=== PATIENT | female | born 1990 | race Caucasian/White ===

== ENCOUNTER 2024-07-16 14:34 | Emergency (ER) | payer MEDICAID, BC ==
[2024-07-16 15:08] LABS: BASOPHILS ABSOLUTE AUTO 0.06 K/uL (0.00-0.20); BASOPHILS PERCENT AUTO 0.6 % (0.0-1.0); HEMATOCRIT 43.7 % (37.0-47.0); HEMOGLOBIN 14.7 g/dL (12.0-16.0); IMMATURE GRAN ABSOLUTE AUTO 0.04 K/uL (0.00-0.05); IMMATURE GRAN PERCENT AUTO 0.4 % (0.0-0.4); LYMPHOCYTES ABSOLUTE AUTO 0.77 K/uL (1.00-4.80); LYMPHOCYTES PERCENT AUTO 7.8 % (24.0-44.0); MEAN CORPUSCULAR HEMOGLOBIN 33.8 pg (28.0-32.0); MEAN CORPUSCULAR HGB CONC 33.6 g/dL (32.0-36.0); MEAN CORPUSCULAR VOLUME 100.5 fL (83.0-99.0); MEAN PLATELET VOLUME 9.3 fL (9.4-12.3); MONOCYTES ABSOLUTE AUTO 0.71 K/uL (0.00-0.80); MONOCYTES PERCENT AUTO 7.2 % (0.0-8.0); NEUTROPHILS ABSOLUTE AUTO 8.24 K/uL (1.80-7.70); PLATELET COUNT,PLT 230 K/uL (150-400); RED BLOOD CELL COUNT 4.35 M/uL (4.10-5.30); WHITE BLOOD CELL COUNT,WBC 9.82 K/uL (3.9-11.3)
[2024-07-16] MEDS: Lactated Ringers 1,000 ML IV SCH ×2 (15:16→18:10)
[2024-07-16] MEDS: Thiamine 200 MG/2 ML MDV IVPUSH ONE (15:17)
[2024-07-16] MEDS: LORazepam 2 MG/ML SDV IVPUSH ONE (15:17)
[2024-07-16] MEDS: Folic Acid 1 MG/0.2 ML UD Syringe IV SCH (15:22)
[2024-07-16 15:31] LABS: A/G RATIO 0.8 (0.9-1.6); ALANINE AMINOTRANSFERASE,ALT 63 IU/L (14-63); ALBUMIN 3.6 g/dL (3.4-5.0); ALKALINE PHOSPHATASE 128 U/L (46-116); ASPARTATE AMNIOTRANSFERASE,AST 70 IU/L (15-37); BILIRUBIN TOTAL 1.4 mg/dL (0.2-1.0); BLOOD UREA NITROGEN,BUN 7 mg/dL (7.0-18.0); CALCIUM 9.3 mg/dL (8.5-10.1); CARBON DIOXIDE,CO2 24.1 mmol/L (21.0-32.0); CHLORIDE,CL 98 mmol/L (98-107); CREATININE 0.8 mg/dL (0.6-1.0); ETHANOL BLOOD MEDICAL <3 mg/dL; GLUCOSE RANDOM 99 mg/dL (74-106); MAGNESIUM 1.5 mg/dL (1.8-2.4); PROTEIN TOTAL,TP 8.1 g/dL (6.4-8.2); SODIUM,NA 136 mmol/L (136-145)
[2024-07-16 15:37] LABS: ESTIMATED GFR 100 mL/min (>60)
[2024-07-16] MEDS: Magnesium Sulfat/D5W 1GM/100ML 1 GM in Premix Bag 1 BAG IV ONE (16:03)
[2024-07-16 17:40] LABS: COLOR,URINE YELLOW; GLUCOSE,URINE NEGATIVE (NEGATIVE); KETONES,URINE >=80 mg/dL (NEGATIVE); LEUKOCYTE ESTERASE,URINE SMALL (NEGATIVE); NITRITE,URINE NEGATIVE (NEGATIVE); OCCULT BLOOD,URINE SMALL (NEGATIVE); PROTEIN,URINE 30 mg/dL (NEGATIVE); UROBILINOGEN,URINE 0.2 EU/dL (<2.0)
[2024-07-16 17:42] LABS: APPEARANCE,URINE CLOUDY; BILIRUBIN,URINE MODERATE (NEGATIVE)
[2024-07-16 17:46] LABS: BACTERIA,URINE 4+ (NEGATIVE); RBC,URINE 0-3 (0-2/HPF); SQUAMOUS EPITHELIAL CELLS,UR OCCASIONAL; WBC,URINE 20-25 (0-5/HPF)
[2024-07-16 17:47] LABS: MUCUS,URINE LIGHT (NONE-MOD)
[2024-07-16] MEDS: PHENobarbitaL sodium 260 MG in Sodium Chloride 0.9% 100 ML IV ONE (18:09)
== END 2024-07-16 20:19 | disposition home or self-care (01) ==
LOC: MW.ED 14:34
DX: F10.139 Alcohol abuse with withdrawal, unspecified (principal); R11.2 Nausea with vomiting, unspecified; R25.1 Tremor, unspecified; Z75.3 Unavailability and inaccessibility of health-care facilities; Y90.0 Blood alcohol level of less than 20 mg/100 ml
CPT/HCPCS: 36415; 80053; 80307; 81001; 81025; 82306; 83735; 85025; 96361; 96365; 96367; 96375; 99285; J2060; J2560; J3411; J3475; J7120; 99283; J3490

== ENCOUNTER 2024-08-04 18:25 | Emergency (ER) | payer BC, MEDICAID | END 2024-08-04 19:45 | disposition left against medical advice (07) | LOC: MW.ED 18:25 | DX: Z53.21 Procedure and treatment not carried out due to patient leaving prior to being seen by health care provider (principal) ==